=== PATIENT | female | born 1990 | race Caucasian/White ===

== ENCOUNTER 2018-01-14 15:12 | Outpatient (CLI) | payer OTHER ==
[~2018-01-14] VITALS: Ht 172.7 cm; Wt 91.8 kg
[2018-01-14 15:24] VITALS: BP 126/84
== END 2018-01-14 18:12 | disposition home or self-care (01) ==
LOC: LDOP 15:12
PROVIDERS: ATTEND Student in an Organized Health Care Education/Training Program
DX: O26.893 Other specified pregnancy related conditions, third trimester (principal); R10.9 Unspecified abdominal pain; Z3A.38 38 weeks gestation of pregnancy
CPT/HCPCS: 59025; 99201; G0463

== ENCOUNTER 2018-01-15 15:28 | Outpatient (CLI) | payer OTHER ==
[~2018-01-15] VITALS: Ht 172.7 cm; Wt 91.8 kg
== END 2018-01-15 18:25 | disposition home or self-care (01) ==
LOC: LDOP 15:28
PROVIDERS: ATTEND Student in an Organized Health Care Education/Training Program
DX: O26.893 Other specified pregnancy related conditions, third trimester (principal); Z3A.39 39 weeks gestation of pregnancy
CPT/HCPCS: 59025; 99211; G0463

== ENCOUNTER 2018-07-19 05:27 | Day surgery (SDC) | payer OTHER ==
[~2018-07-19] VITALS: Ht 172.7 cm; Wt 83.9 kg
[~2018-07-19 05:27] MED LIST: ALBU8.5H8 INH; IBUP-1222 PO
[2018-07-19] MEDS ORDERED: LACTATED RINGERS 1,000 ML IV SCH (06:15)
[2018-07-19 06:41] VITALS: BP 116/84
[2018-07-19] MEDS ORDERED: GENTAMICIN 80 MG/2 ML ONE (06:55)
[2018-07-19] MEDS ORDERED: BUPIVACAINE/PF 0.25% ONE (06:55)
[2018-07-19] MEDS ORDERED: ESTROGENS CONJUGATED VAG CRM 0.625MG/1G, 30GM ONE (06:55)
[2018-07-19] MEDS ORDERED: VANCOMYCIN 500 MG ONE (06:56)
[2018-07-19] MEDS ORDERED: THROMBIN 5,000 UNIT VIAL TP ONE (06:56)
[2018-07-19] MEDS ORDERED: MIDAZOLAM 1 MG/ML, 2ML ONE (07:20)
[2018-07-19] MEDS ORDERED: FENTANYL PF 250 MCG/5ML ONE (07:20)
[2018-07-19] MEDS ORDERED: ONDANSETRON 2MG/ML, 2ML ONE ×2 (07:29→07:30)
[2018-07-19] MEDS ORDERED: DEXAMETHASONE 4 MG/ML, 5ML ONE (07:29)
[2018-07-19] MEDS ORDERED: PROPOFOL 10 MG/ML, 20ML ONE (07:30)
[2018-07-19] MEDS ORDERED: DEXAMETHASONE 4 MG/ML, 1ML ONE (07:30)
[2018-07-19] MEDS ORDERED: ACETAMINOPHEN 500 MG TABLET PO ONE (07:30)
[2018-07-19] MEDS ORDERED: CEFOTETAN 1 GM ONE (07:30)
[2018-07-19] MEDS ORDERED: SCOPOLAMINE PATCH, 1.5MG PATCH.TD72 TD ONE (07:30)
[2018-07-19] MEDS ORDERED: DIAZEPAM 5 MG TABLET PO ONE (07:30)
[2018-07-19] MEDS ORDERED: PROMETHAZINE 12.5 MG SUPP PR PRN (09:30)
[2018-07-19] MEDS ORDERED: KETOROLAC 30 MG/1 ML IV PRN (09:30)
[2018-07-19] MEDS ORDERED: LABETALOL 5MG/ML, 20ML IV PRN (09:30)
[2018-07-19] MEDS ORDERED: ONDANSETRON 2MG/ML, 2ML IV PRN (09:30)
[2018-07-19] MEDS ORDERED: HALOPERIDOL 5 MG/ML IV PRN (09:30)
[2018-07-19] MEDS ORDERED: HYDROmorphone 2 MG/ML, 1ML IVPush PRN (09:30)
[2018-07-19] MEDS ORDERED: MIDAZOLAM 1 MG/ML, 2ML IV PRN (09:30)
[2018-07-19] MEDS ORDERED: hydrALAzine 20 MG/ML, 1ML IV PRN (09:30)
[2018-07-19] MEDS ORDERED: MEPERIDINE/PF 25MG/0.5ML IVPush PRN (09:30)
[2018-07-19] MEDS ORDERED: EPHEDRINE 50 MG/ML, 1ML IVPush PRN (09:30)
[2018-07-19] MEDS ORDERED: DIAZEPAM 5 MG/ML, 2ML IVPush PRN (09:30)
[2018-07-19] MEDS ORDERED: MORPHINE SULFATE 4 MG/ML, 1ML IVPush PRN (09:30)
[2018-07-19] MEDS ORDERED: ALBUTEROL SULFATE 2.5 MG/3 ML NPPB PRN (09:30)
[2018-07-19] MEDS ORDERED: PROMETHAZINE 25 MG/ML, 1ML IV PRN (09:30)
[2018-07-19] MEDS ORDERED: ONDANSETRON ODT 8 MG PO PRN (09:30)
[2018-07-19] MEDS ORDERED: MEPERIDINE/PF 25MG/ML,1ML ONE (09:57)
[2018-07-19] MEDS ORDERED: OXYcodone 5 MG/5 ML ORAL.SOL UDC ONE ×2 (09:57→10:26)
[2018-07-19] MEDS ORDERED: KETOROLAC 30 MG/1 ML ONE (09:57)
[2018-07-19] MEDS: OXYcodone 5 MG/5 ML ORAL.SOL UDC PO PRN ×2 (10:00→10:27)
[2018-07-19] MEDS ORDERED: FENTANYL PF 100 MCG/2ML ONE (10:26)
[2018-07-19] MEDS: FENTANYL PF 100 MCG/2ML IV PRN ×2 (10:29→10:36)
[2018-07-19] MEDS ORDERED: OXYcodone/APAP 5/325MG TABLET PO PRN (17:00)
== END 2018-07-19 18:15 | disposition home or self-care (01) ==
LOC: OUT 05:27
PROVIDERS: ATTEND Specialist
DX: N81.11 Cystocele, midline (principal); N90.60 Unspecified hypertrophy of vulva; N81.10 Cystocele, unspecified; J45.909 Unspecified asthma, uncomplicated; Z98.890 Other specified postprocedural states; G43.909 Migraine, unspecified, not intractable, without status migrainosus
CPT/HCPCS: 36415; 56620; 57260; 84703; J1100; J1580; J1885; J2175; J2250; J2405; J2704; J3010; J3370; J3490; J7120